=== PATIENT | male | born 1940 | race Caucasian/White ===

== ENCOUNTER 2018-07-15 09:18 | Emergency (ER) | payer OTHER ==
[~2018-07-15] VITALS: Ht 144.8 cm; Wt 64.0 kg
[2018-07-15 09:24] VITALS: BP 123/76
--- NOTE | 2018-07-15 09:35 | NUR ---
bib daughter in law with c/o dysuria x 8 days. Went to urgent, sent home with abx (unknown which kind), patient reports last day to take them. Patient reports of lack of appeitite, generalized weakness, urinary frequency/burning when voiding. Patient denies any diarrhea or fever. Patient reports n/v since last night. Total of one episode of non bloody emesis.
--- NOTE | 2018-07-15 09:50 | NUR ---
DR JADE AT BEDSIDE.
[2018-07-15] MEDS ORDERED: cefTRIAXone 1,000 MG in LIDOCAINE 1% ***ER ONLY *** 2.1 ML IM ONE (10:00)
[2018-07-15] MEDS ORDERED: cefTRIAXone 1,000 MG VIAL ONE (10:13)
[2018-07-15] MEDS ORDERED: LIDOCAINE MPF 1% - 5 mL VIAL 5 ML ONE (10:14)
--- NOTE | 2018-07-15 10:20 | NUR ---
NO NEEDS STATED AT THIS TIME.
[2018-07-15 10:52] VITALS: BP 123/76
--- NOTE | 2018-07-15 10:53 | NUR ---
Patient discharged with v/s stable. Written and verbal after care instructions given and explained. Patient alert, oriented and verbalized understanding of instructions. Ambulatory with steady gait. All questions addressed prior to discharge. ID band removed. Patient advised to follow up with PMD. Rx of flomax, levaquin given. Patient educated on indication of medication including possible reaction and side effects. Opportunity to ask questions provided and answered.
== END 2018-07-15 10:53 | disposition home or self-care (01) ==
LOC: MED 09:18
DX: N41.9 Inflammatory disease of prostate, unspecified (principal); N39.0 Urinary tract infection, site not specified; R11.10 Vomiting, unspecified
CPT/HCPCS: 81002; 82948; 87086; 96372; 99283; J0696; J2001